=== PATIENT | female | born 1985 | race Caucasian/White ===

== ENCOUNTER 2016-09-16 18:18 | Emergency (ER) | payer OTHER ==
[~2016-09-16] VITALS: Ht 157.5 cm; Wt 69.0 kg
[2016-09-16 18:52] LABS: GLUCOSE,POINT OF CARE 73 MG/DL (70-110)
[2016-09-16 22:12] VITALS: BP 100/56
== END 2016-09-16 22:30 | disposition home or self-care (01) ==
LOC: EMS 18:22
DX: B34.9 Viral infection, unspecified (principal); M79.1 Myalgia; R51 Headache; Z88.6 Allergy status to analgesic agent
CPT/HCPCS: 70450; 82962; 99285